=== PATIENT | male | born 1965 | race Two or more races ===

== ENCOUNTER 2023-07-10 13:02 | Outpatient (CLI) | payer OTHER | END 2023-07-10 13:15 | disposition home or self-care (01) | LOC: SONOGRAMA 13:02 | PROVIDERS: ATTEND Pathology Anatomic Pathology & Clinical Pathology | DX: D11.0 Benign neoplasm of parotid gland (principal); E04.2 Nontoxic multinodular goiter; D48.19 Other specified neoplasm of uncertain behavior of connective and other soft tissue ==